=== PATIENT | female | born 1990 | race Two or more races ===

== ENCOUNTER 2017-10-27 10:30 | Inpatient (IN) | payer OTHER ==
[~2017-10-27] VITALS: Ht 157.5 cm; Wt 90.7 kg
[2017-10-27] MEDS ORDERED: PRENATE ELITE1 EAC2 PO (13:38)
[2017-11-06] MEDS ORDERED: PERCOCET 5-3251 EACH PO (08:42)
== END 2017-11-06 14:08 | DRG 766 ==
LOC: LDR 11-04 06:04 → O/R 11-04 11:00 → OB/GYN 11-04 14:03 → SURG-SUITE 11-04 15:34 → LDR 11-07 10:30
PROVIDERS: Obstetrics & Gynecology
PROC: 0UL70ZZ Occlusion of Bilateral Fallopian Tubes, Open Approach (ICD-10-PCS; 2017-11-04)
PROC: 4A033R1 Measurement of Arterial Saturation, Peripheral, Percutaneous Approach (ICD-10-PCS; 2017-11-04)
PROC: 4A1HXCZ Monitoring of Products of Conception, Cardiac Rate, External Approach (ICD-10-PCS; 2017-11-04)
PROC: 10D00Z1 Extraction of Products of Conception, Low, Open Approach (ICD-10-PCS; principal; 2017-11-04 07:15)
DX: O99.02 Anemia complicating childbirth (principal); Z3A.39 39 weeks gestation of pregnancy; Z37.0 Single live birth; Z30.2 Encounter for sterilization

== ENCOUNTER 2019-10-25 10:48 | Outpatient (CLI) | payer OTHER ==
[~2019-10-25 10:48] MED LIST: PERCOCET 5-3251 EACH PO; PRENATE ELITE1 EAC2 PO
== END 2019-10-25 10:51 | disposition home or self-care (01) ==
LOC: SONOGRAMA 10:48
PROVIDERS: ATTEND Pathology Anatomic Pathology & Clinical Pathology
DX: E04.1 Nontoxic single thyroid nodule (principal)